=== PATIENT | male | born 1955 | race Caucasian/White ===

== ENCOUNTER 2016-07-22 08:21 | Outpatient (CLI) | payer OTHER ==
--- NOTE | 2016-07-22 12:48 | DIAGNOSTIC IMAGING REPORT ---
PROCEDURE: NM HEPATOBILIARY IMAGING INDICATION: CHOLECYSTITS WITHOUT CALCULUS TECHNIQUE: 8.0 mCi of technetium-99m Choletec was injected intravenously and images were acquired over a one hour time interval. Subsequently, a meal of fatty milk was given. Scintigraphic images were obtained over the next 60 minutes with calculation of gallbladder ejection fraction. COMPARISON: None. FINDINGS: There is homogeneous uptake of radiotracer in the liver. There is appearance of the intrahepatic and extrahepatic bile ducts at 13 minutes, and appearance of the gallbladder by 19 minutes. Progressive filling of the gallbladder within the first 60 minutes of the exam. No passage of radiotracer into the small intestines. Following administration of fatty milk, there was immediate passage of radiotracer into the small intestines, retrograde passage of radiotracer into the stomach, and appropriate contraction of the gallbladder. Gallbladder ejection fraction is 52% at 40 minutes. There was further passage of radiotracer through small intestines. IMPRESSION: 1. Patent cystic duct. 2. No spontaneous excretion of radiotracer into the duodenum initially, but appropriate, physiologic excretion/response to fatty meal. 3. Gallbladder ejection fraction 52%.
== END 2016-07-22 23:00 ==
LOC: NM SRH 08:21
DX: K81.9 Cholecystitis, unspecified (principal)